=== PATIENT | male | born 1970 | race Caucasian/White ===

== ENCOUNTER 2017-06-18 13:54 | Emergency (ER) | payer MEDICAID ==
[~2017-06-18] VITALS: Ht 165.1 cm; Wt 68.0 kg
[2017-06-18 14:19] VITALS: BP 132/81
== END 2017-06-18 15:48 | disposition left against medical advice (07) ==
LOC: ED 13:54
DX: Z53.21 Procedure and treatment not carried out due to patient leaving prior to being seen by health care provider (principal)

== ENCOUNTER 2017-11-02 12:04 | Emergency (ER) | payer MEDICAID | END 2017-11-02 14:19 | disposition left against medical advice (07) | LOC: ED 12:04 | DX: Z53.21 Procedure and treatment not carried out due to patient leaving prior to being seen by health care provider (principal) ==

== ENCOUNTER 2018-02-08 11:57 | Emergency (ER) | payer MEDICAID ==
[~2018-02-08] VITALS: Ht 167.6 cm; Wt 79.8 kg
[2018-02-08 13:47] VITALS: BP 151/96
== END 2018-02-08 13:47 | disposition home or self-care (01) ==
LOC: ED 11:57
DX: M54.16 Radiculopathy, lumbar region (principal); F17.200 Nicotine dependence, unspecified, uncomplicated; G47.00 Insomnia, unspecified; Z71.6 Tobacco abuse counseling
CPT/HCPCS: 99406; J1885; J7512

== ENCOUNTER 2018-07-17 21:57 | Emergency (ER) | payer MEDICAID ==
[~2018-07-17] VITALS: Ht 165.1 cm; Wt 68.1 kg
[2018-07-17 22:15] VITALS: Ht 165.1 cm; Wt 68.1 kg
[2018-07-17 23:52] LABS: BASOPHIL % 0.2 % (0-2); PLATELET COUNT 359 x10^3mcL (130-400); RED CELL DISTRIBUTION WIDTH 13.8 % (11.5-14.5)
[2018-07-18] LABS: CALCIUM 8.1 mg/dL (8.5-10.1); CARBON DIOXIDE 26.1 mmol/L (21-32); CHLORIDE SERUM 105 mmol/L (98-107); CREATININE SERUM 0.7 mg/dL (0.7-1.3); GFR1 > 60 mL/min; GLUCOSE SERUM 129 mg/dL (74-106); POTASSIUM SERUM 3.3 mmol/L (3.5-5.1); SODIUM SERUM 137 mmol/L (136-145)
[2018-07-18 01:05] LABS: microscopic required? NO
[2018-07-18 01:11] LABS: UA SPECIFIC GRAVITY 1.015 (1.005-1.035); urine erythrocyte NEGATIVE (NEGATIVE)
[2018-07-18 03:10] VITALS: BP 126/88
== END 2018-07-18 03:10 | disposition home or self-care (01) ==
LOC: ED 21:57
PROVIDERS: Emergency Medicine
DX: R10.9 Unspecified abdominal pain (principal); R11.0 Nausea; G89.29 Other chronic pain; F32.9 Major depressive disorder, single episode, unspecified
CPT/HCPCS: J1885; J2270; J2405; J7030

== ENCOUNTER 2018-09-24 23:43 | Emergency (ER) | payer MEDICAID ==
[~2018-09-24] VITALS: Ht 167.6 cm; Wt 72.6 kg
[2018-09-24 23:52] VITALS: Ht 167.6 cm; Wt 72.6 kg
[2018-09-25 02:45] VITALS: BP 149/69
== END 2018-09-25 02:45 | disposition home or self-care (01) ==
LOC: ED 23:43
DX: J20.9 Acute bronchitis, unspecified (principal); M54.30 Sciatica, unspecified side; F32.9 Major depressive disorder, single episode, unspecified

== ENCOUNTER 2019-02-22 18:39 | Emergency (ER) | payer MEDICAID ==
[~2019-02-22] VITALS: Ht 165.1 cm; Wt 65.5 kg
[2019-02-22 18:57] VITALS: Ht 165.1 cm; Wt 65.5 kg
[2019-02-22 20:44] VITALS: BP 145/100
== END 2019-02-22 20:44 | disposition home or self-care (01) ==
LOC: ED 18:39
DX: N50.819 Testicular pain, unspecified (principal); L98.9 Disorder of the skin and subcutaneous tissue, unspecified; R10.30 Lower abdominal pain, unspecified; G89.29 Other chronic pain; F32.9 Major depressive disorder, single episode, unspecified; W18.39XA Other fall on same level, initial encounter; Y93.89 Activity, other specified; Y92.89 Other specified places as the place of occurrence of the external cause; Y99.8 Other external cause status

== ENCOUNTER 2019-07-07 09:11 | Emergency (ER) | payer MEDICAID ==
[~2019-07-07] VITALS: Ht 167.6 cm; Wt 68.5 kg
[2019-07-07 11:16] VITALS: BP 126/92
== END 2019-07-07 11:16 | disposition home or self-care (01) ==
LOC: ED 09:11
DX: M54.32 Sciatica, left side (principal); I10 Essential (primary) hypertension; F32.9 Major depressive disorder, single episode, unspecified; F17.210 Nicotine dependence, cigarettes, uncomplicated; G89.29 Other chronic pain
CPT/HCPCS: J1885